=== PATIENT | male | born 1975 | race Caucasian/White ===

== ENCOUNTER → 2018-02-23 17:02 | Outpatient (CLI) | payer OTHER, SELFPAY ==
--- NOTE | 2018-02-23 17:06 | RAD_ITS ---
STUDY: X-RAY - LEFT FOOT CLINICAL: Male, 43 years old. Left foot burning TECHNIQUE: 2 view(s) of the foot. COMPARISON: None. FINDINGS: Dorsal and plantar calcaneus spurs. Normal visualized subtalar, talonavicular, calcaneocuboid, tarsal and tarsometatarsal articulations. Normal metatarsi. Normal metatarsophalangeal joint of the great toe. Normal tibial and fibular sesamoid bones. Normal interphalangeal joint of the great toe. Normal phalanges of the great toe. Normal second through fifth metatarsophalangeal joints. Normal interphalangeal joints and phalanges of the lesser toes. The soft tissue structures are unremarkable. RAD/Foot 2 Views IMPRESSION: Calcaneus spurs. No other osseous abnormality is evident. Electronically Signed: Rian Brock MD at 3:59 EDT Tel , Service support ,
== END ==
PROVIDERS: Family Provider Internal Medicine; PCP Internal Medicine; Referring Provider Internal Medicine; Visit Provider Internal Medicine
DX: M77.32 Calcaneal spur, left foot (principal)
CPT/HCPCS: 73620

== ENCOUNTER → 2018-05-04 14:38 | Outpatient (CLI) | payer OTHER, SELFPAY | PROVIDERS: Family Provider Internal Medicine; PCP Internal Medicine; Visit Provider Internal Medicine | DX: G47.30 Sleep apnea, unspecified (principal) | CPT/HCPCS: 98960; G0463 ==

== ENCOUNTER → 2018-07-26 08:00 | Outpatient (CLI) | payer OTHER, BC, SELFPAY ==
[2018-07-25 16:14] VITALS: BMI 49.4
[2018-07-26 08:31] LABS: Bacteria 0 SEEN /hpf (None Seen); Mucous, Urine 0 SEEN /hpf (<or=2+); Red Blood Cells-Urine 0 SEEN /hpf (0-5); Squamous Epithelial Cells - UA 0 SEEN /hpf (0-5); White Blood Cells 0 SEEN /hpf (0-5)
[2018-07-26 13:36] LABS: Color, Urine Yellow (Yellow); Glucose, Dipstick Normal (Normal); Ketone-Dipstick Negative (Negative); Leukocyte Esterase-Dipstick Negative /ul (Negative); Nitrite-Dipstick Negative (Negative); Occult Blood-Urine 10 /ul (Negative); Protein-Dipstick 15 mg/dl (Negative); Urine Bilirubin Dipstick Negative (Negative); Urine Clarity Clear (Clear); Urine Urobilinogen Normal (Normal)
== END ==
PROVIDERS: Family Provider Internal Medicine; PCP Internal Medicine; Visit Provider Nurse Practitioner Family
DX: R30.0 Dysuria (principal)
CPT/HCPCS: 81001; 87086

== ENCOUNTER → 2018-08-01 | Outpatient (CLI) | payer OTHER, BC, SELFPAY ==
[2018-07-25 16:14] VITALS: BMI 49.4
[2018-08-01 16:56] LABS: Chlamydia Trachomatis by PCR Negative (Negative); Neisserai gonorrhoeae by PCR Negative (Negative); Probe Check PASS; Sample Adequacy Control PASS; Specimen Processing Control PASS; Trichomonas Vag DNA by PCR Negative (Negative)
== END | disposition home or self-care (01) ==
PROVIDERS: Family Provider Internal Medicine; PCP Internal Medicine; Referring Provider Nurse Practitioner Family; Visit Provider Nurse Practitioner Family
DX: R30.0 Dysuria (principal)
CPT/HCPCS: 87210; 87491; 87591; 87661

== ENCOUNTER → 2019-09-28 15:38 | Outpatient (CLI) | payer BC, SELFPAY ==
[2019-09-28 15:26] VITALS: BMI 49.4
[2019-09-28 16:48] LABS: Absolute Lymphocyte Count 1.51 X10^3/uL (0.83-4.51); Basophil# 0.02 X10^3/uL; Basophil% 0.3 % (0-1); Eosinophil# 0.16 X10^3/uL; Eosinophils% 2.2 % (0-5); Hematocrit 44.7 % (40-54); Hemoglobin 14.8 g/dL (13.0-16.5); Lymphocyte # 1.51 X10^3/ul (4.0); Lymphocyte % 20.8 % (19-41); Mean Corp Hgb Conc 33.1 g/dL (32-36); Mean Corpuscular Hgb 29.2 pg (27.0-32.0); Mean Corpuscular Volume 88.3 fL (80-94); Mean Platelet Vol. 10.7 fl (6.2-12.0); Monocyte# 0.53 X10^3/uL; Monocyte% 7.3 % (0-10); NRBC Flagged by Analyzer 0 % (0-5); Neutrophil # 5.02 X10^3/uL (2.7-7.7); Neutrophil % 69.1 % (47-70); Platelet Count 211 K/mm3 (150-450); RBC Distribution Width CV 12.1 % (11.6-14.6); RBC Distribution Width SD 38.9 fl (35.1-43.9); Red Blood Count 5.06 M/mm3 (4.6-6.2); White Blood Count 7.3 K/mm3 (4.4-11.0)
[2019-09-28 17:19] LABS: Hemoglobin A1c 5.5 % (3.8-5.6)
[2019-09-28 17:22] LABS: ALB/GLOB Ratio 1.2 RATIO (0.9-2.4); AST(SGOT) 21 U/L (15-37); Alanine Aminotransfer ALT/SGPT 36 U/L (16-61); Alkaline Phosphatase 95 U/L (45-117); Anion Gap 6 (5-15); BUN 21 mg/dL (7-18); BUN/Creat Ratio 21.2 RATIO (10-20); Calcium,Total 9.2 mg/dL (8.5-10.1); Chloride 107 mmol/L (98-107); Cholesterol 207 mg/dL (200); Creatinine, Serum 0.99 mg/dL (0.70-1.30); EST Glomerular Filtration Rate 87 mL/min (>60); Est Glom Filt Rate - Afr Amer 106 mL/min (>60); Globulin 3.3 g/dL (2.2-4.2); Glucose 117 mg/dL (74-106); High Density Lipoprotein 38 mg/dL; Potassium 3.9 mmol/L (3.5-5.1); Protein, Total 7.3 g/dL (6.4-8.2); Sodium Level 140 mmol/L (136-145); Thyroid Stim Hormone (TSH) 1.39 uIU/mL (0.358-3.74); Triglycerides 437 mg/dL
--- OUTSIDE RECORDS SUMMARY | 2020-02-10 08:43 | XMS RPT_ITS | CCD ---
:1975 External Reference #:[id number] Author Organization [facility] Care Team Providers Name Role Phone RASHIDA, [facility] Unavailable Unavailable R[facility]IDA, [facility] Unavailable Unavailable R[facility]IDA, [facility] Unavailable Unavailable RASHIDA, [facility] Unavailable Unavailable RASHIDA, [facility] Unavailable Unavailable RASHIDA, [facility] Unavailable Unavailable Melecio Ahumada () Primary Care Provider Medications Medication Name Sig Date Prescriber Location Cetirizine CETIRIZINE HCL (ZYRTEC Ccf Provider [facility] ORAL) Take by mouth Provider ([id number]) once daily. 0 Active Comment: Take by mouth once daily. CPAP CPAP daily at bedtime. 0 Ccf Provider Ccf Provider [facility] (85114) Active Comment: daily at bedtime. Gemfibrozil gemfibrozil (LOPID) 09-30-2016 Jude Sanford) [facility] 600 mg tablet Take 1 Brandyn Majano (26305) tablet by mouth twice () Brandyn daily before meals. 180 tablet 1 09/30/2016 Active Comment: Take 1 tablet by mouth twice daily before meals. hydroCHLOROthiazide Hydrochlorothiazide 12.5 08-30-2016 Vin Jeff mg capsule Take 1 () Brandyn Luz (44 195) capsule by mouth once Jude Majano daily. 90 capsule 3 (Savi Ahumada 08/30/2016 Active Comment: Take 1 capsule by mouth once daily. Metoprolol metoprolol tartrate, 03-31-2017 Jude Sanford) [facility] short acting, Brandyn Majano (4419 5) (LOPRESSOR) 50 mg () Brandyn tablet TAKE 1 TABLET BY MOUTH TWICE DAILY. 180 tablet 0 03/31/2017 Active Comment: TAKE 1 TABLET BY MOUTH TWICE DAILY. MULTIVITAMIN ORAL MULTIVITAMIN ORAL Take 1 Ccf Provide r Ccf [facility] tablet by mouth once Provider (39353) daily. 0 Active Comment: Take 1 tablet by mouth once daily. Problems Category Problem Name Status Date Location Disorders of lipid Hyperlipidemia Active [facility] metabolism (15145) Essential hypertension Hypertensive disorder Active [facility] (05602) Other nutritional; Morbid obesity Active 07-25-2017 - [facility] endocrine; and (61473) metabolic disorders Results Result Name Value Range Unit Interpretation Flag Date Location No panel information on 2019-12-17 [facility] ([id number]) progress on 2019-04 PROGRESS HNO ID: [id number] Normal 04-27-2019 [facility] Author: Myah Hernandez ([id number]) Service: ? Author Type: Automatic Presser Type: Progress Notes Filed: 04/27/2019 9:29 AM Note Text: POPULATION HEALTH IMPLEMENTATION SPECIALIST QUICKNOTE Provider Action/FYI: Letter mailed to patient. Patient identified by name and . Myah Hernandez CMA PROGRESS HNO ID: [id number] Normal 04-27-2019 [facility] Author: Myah Hernandez ([id number]) Service: ? Author Type: Automatic Presser Type: Progress Notes Filed: 04/27/2019 9:29 AM Note Text: POPULATION [facility] IMPLEMENTATION SPECIALIST QUICKNOTE Provider Action/FYI: 3rd attempt - Left detailed message for patient to return ca ll #[phone] Mailing letter to patient. Patient identified by name and . Myah Hernandez CMA progress on 2019-03 PROGRESS HNO ID: [id number] Normal 04-24-2019 [facility] Author: Myah Hernandez ([id number]) Service: ? Author Type: Automatic Presser Type: Progress Notes Filed: 04/27/2019 9:29 AM Note Text: POPULATION HEALTH IMPLEMENTATION SPECIALIST QUICKNOTE Provider Action/FYI: 2nd attempt - Left detailed message for patient to return ca ll #[phone] Patient identified by name and . Myah Hernandez CMA progress on 2019-03 PROGRESS HNO ID: [id number] Normal 04-20-2019 [facility] Author: Myah Hernandez ([id number]) Service: ? Author Type: Automatic Presser Type: Progress Notes Filed: 04/27/2019 9:29 AM Note Text: POPULATION HEALTH IMPLEMENTATION SPECIALIST QUICKNOTE Provider Action/FYI: 1st attempt - Left detailed message for patient to return ca #[phone] Patient identified by name and . Myah Hernandez CMA progress on 2019-03 PROGRESS HNO ID: [id number] Normal 04-19-2019 [facility] Author: Myah Jeff ([id number]) Service: ? Author Type: Automatic Presser Type: Progress Notes Filed: 04/27/2019 9:29 AM Note Text: [facility] CARE GAP REGISTRY DOCUMENTATION (OUTSIDE TEAMLET) Provider Action/FYI: PSR Action/FYI: - due for Physical next available with PCP or LAWN TECHNICIAN (last pcp a ppointment 07/27/16) With labs prior (already ordered) Health Maintenance Due: BP CONTROLLED (<130/80) due on 01/04/1994 ANNUAL PCP TEAM CHRONIC DISEASE VISIT due on 07/27/2017 INFLUENZA(1) due on 12/24/2018 Patient identified by name and date of . Last BP/Labs: Blood Pressure: Last 3 Encounter BP Readings: Date: BP: 07/27/2016 122/78 Lipids: Cholesterol, Total (mg/dL) Date Value 08/07/2016 156 HDL Cholesterol (mg/dL) Date Value 08/07/2016 34 LDL Cholesterol (mg/dL) Date Value 08/07/2016 89 Triglyceride (mg/dL) Date Value 08/07/2016 167 HGB A1C: Lab Results Component Value Date HBA1C 5.8 08/07/2016 TSH: No results found for: TSH) ? Patient has the following care gap registry disease diagnosis:Hyperlipidemia ? HTN ? Patient has the following open care gaps: Health Maintenance Due: BP CONTROLLED (<130/80) due on 01/04/1994 ANNUAL PCP TEAM CHRONIC DISEASE VISIT due on 07/27/2017 INFLUENZA(1) due on 12/24/2018 ? Last office visit: 07/27/2016 ? Future office visit: Physical next available with pcp or n p Myah Hernandez CMA cnptoutreach on 201 01-04-26 CNPTOUTREACH Patient Outreach (FAMPWS) Normal 1 06-20-2018 [facility] LORANICHOLAS Shakila ([id number]) 1975 [facility] Date Time Provider Department (76504) 04/19/19 MYAH HERNANDEZ) JOELLE During your visit today, we recorded the following informati on about you: Myah Hernandez CMA 04/27/2019 9:29 AM Signed [facility] CARE GAP REGISTRY DOCUMENTATION (OUTSIDE TEAMLET) Provider Action/FYI: PSR Action/FYI: - due for Physical next available with P CP or LAWN TECHNICIAN (last pcp appointment 07/27/16) With labs prior (already ordered) Health Maintenance Due: BP CONTROLLED (<130/80) due on 01/04/1994 ANNUAL PCP TEAM CHRONIC DISEASE VISIT due on 07/27/2017 INFLUENZA(1) due on 12/24/2018 Patient identified by name and date of . Last BP/Labs: Blood Pressure: Last 3 Encounter BP Readings: Date: BP: 07/27/2016 122/78 Lipids: Cholesterol, Total (mg/dL) Date Value 08/07/2016 156 HDL Cholesterol (mg/dL) Date Value 08/07/2016 34 LDL Cholesterol (mg/dL) Date Value 08/07/2016 89 Triglyceride (mg/dL) Date Value 08/07/2016 167 HGB A1C: Lab Results Component Value Date HBA1C 5.8 08/07/2016 TSH: No results found for: TSH) ? Patient has the following care gap reg istry disease diagnosis:Hyperlipidemia ? HTN ? Patient has the following open care gaps: Health Maintenance Due: BP CONTROLLED (<130/80) due on 01/04/1994 ANNUAL PCP TEAM CHRONIC DISEASE VISIT due on 07/27/2017 INFLUENZA(1) due on 12/24/2018 ? Last office visit: 07/27/2016 ? Future office visit: Physical next available with pcp or n p GERMÁN Rooney CMA 04/27/2019 9:29 AM Signed POPULATION HEALTH IMPLEMENTATION SPECIALIST PINKY Provider Action/FYI: 1st attempt - Left detailed message for patient to return ca ll #[phone] Patient identified by name and . GERMÁN Rooney CMA 04/27/2019 9:29 AM Signed POPULATION HEALTH IMPLEMENTATION SPECIALIST PINKY Provider Action/FYI: 2nd attempt - Left detailed message for patient to return ca ll #[phone] Patient identified by name and . Myah GERMÁN Hernandez CMA 04/27/2019 9:29 AM Signed [facility] IMPLEMENTATION SPECIALIST YULIAE Provider Action/FYI: 3rd attempt - Left detailed message for patient to return ca ll #[phone] Mailing letter to patient. Patient identified by name and . Myah GERMÁN Hernandez CMA 04/27/2019 9:29 AM Signed [facility] IMPLEMENTATION SPECIALIST YULIAE Provider Action/FYI: Letter mailed to patient. Patient identified by name and . Myah Hernandez CMA Allergies As of Date: 04/19/2019 (No Known Allergies) Date Reviewed: 07/27/2016 Reviewed by: Jude Sanford) Brandyn - Fully Assessed Reason for Visit: PHMA/Care Gap Outreach [[id number]] Prescriptions as of 04/19/2019 Sig: METOPROLOL TARTRATE 50 MG TAB* TAKE 1 TABLET BY MOUTH TWICE * GEMFIBROZIL 600 MG TABLET Take 1 tablet by mouth twice * HYDROCHLOROTHIAZIDE 12.5 MG C* Take 1 capsule by mouth once * MULTIVITAMIN ORAL Take 1 tablet by mouth once d* ZYRTEC ORAL Take by mouth once daily. CPAP daily at bedtime. Problem List As Of Date 04/19/2019 Noted Resolved Hypertension [I10] Hyperlipidemia [E78.5] Obesity, Class III, BMI 40-49.9 (morbid obesity*07/25/2017 Letter Text Encounter Status:Closed by MYAH HERNANDEZ CMA on 04/27/19 progress on 2018-11 PROGRESS HNO ID: [id number] Normal 12-01-2018 [facility] Author: Myah Hernandez ([id number]) Service: ? Author Type: Automatic Presser Type: Progress Notes Filed: 12/01/2018 8:42 AM Note Text: [facility] IMPLEMENTATION SPECIALIST YULIAE Provider Action/FYI: 3rd attempt - Left message for patient to return call #[phone] Mailing letter to patient. Patient identified by name and . Myah Hernandez CMA progress on 2018-11 PROGRESS HNO ID: [id number] Normal 11-29-2018 [facility] Author: Myah Hernandez ([id number]) Service: ? Author Type: Automatic Presser Type: Progress Notes Filed: 12/01/2018 8:42 AM Note Text: POPULATION HEALTH IMPLEMENTATION SPECIALIST QUICKNOTE Provider Action/FYI: 2nd attempt - Left detailed message for patient to return ca ll #[phone] Patient identified by name and . Myah Hernandez CMA progress on 2018-11 PROGRESS HNO ID: [id number] Normal 11-24-2018 [facility] Author: Myah MisRuslan Hernandez ([id number]) Service: ? Author Type: Automatic Presser Type: Progress Notes Filed: 12/01/2018 8:42 AM Note Text: POPULATION [facility] IMPLEMENTATION SPECIALIST QUICKNOTE Provider Action/FYI: 1st attempt - Left detailed message for patient to return ca ll #[phone] Patient identified by name and . Myah Hernandez CMA progress on 2018-10 PROGRESS HNO ID: [id number] Normal 11-22-2018 [facility] Author: Myah Hernandez [place] ([id number]) Service: ? Author Type: Automatic Presser Type: Progress Notes Filed: 12/01/2018 8:42 AM Note Text: [facility] CARE GAP REGISTRY DOCUMENTATION (OUTSIDE TEAMLET) Provider Action/FYI: PSR Action/FYI: - due for Physical (last PCP appointment 07/27/2016) with labs prior (already ordered) Health Maintenance Due: BP CONTROLLED (<130/80) due on 01/04/1994 ANNUAL PCP TEAM CHRONIC DISEASE VISIT due on 07/27/2017 Patient identified by name and date of . Last BP/Labs: Blood Pressure: Last 3 Encounter BP Readings: Date: BP: 07/27/2016 122/78 Lipids: Cholesterol, Total (mg/dL) Date Value 08/07/2016 156 HDL Cholesterol (mg/dL) Date Value 08/07/2016 34 LDL Cholesterol (mg/dL) Date Value 08/07/2016 89 Triglyceride (mg/dL) Date Value 08/07/2016 167 HGB A1C: Lab Results Component Value Date HBA1C 5.8 08/07/2016 TSH: No results found for: TSH) ? Patient has the following care gap registry disease diagnosis:Hyperlipidemia ? HTN ? Patient has the following open care gaps: Health Maintenance Due: BP CONTROLLED (<130/80) due on 01/04/1994 ANNUAL PCP TEAM CHRONIC DISEASE VISIT due on 07/27/2017 ? Last office visit: 07/27/2016 ? Future office visit: Physical Myah Hernandez CMA cnptoutreach on 201 12-30-30 CNPTOUTREACH Patient Outreach ([facility]WS) Normal 0 11-22-2018 [place] [facility] NICHOLAS LORA ([id number]) 1975 [facility] Date Time Provider Department (37902) 11/22/18 MYAH HERNANDEZ) FAMPWS During your visit today, we recorded the following informati on about you: Myah Hernandez CMA 12/01/2018 8:42 AM Signed [facility] CARE GAP REGISTRY DOCUMENTATION (OUTSIDE TEAMLET) Provider Action/FYI: PSR Action/FYI: - due for Physical (last PCP appointment 07/27/2016) with kris rodrigez prior (already ordered) Health Maintenance Due: BP CONTROLLED (<130/80) due on 01/04/1994 ANNUAL PCP TEAM CHRONIC DISEASE VISIT due on 07/27/2017 Patient identified by name and date of . Last BP/Labs: Blood Pressure: Last 3 Encounter BP Readings: Date: BP: 07/27/2016 122/78 Lipids: Cholesterol, Total (mg/dL) Date Value 08/07/2016 156 HDL Cholesterol (mg/dL) Date Value 08/07/2016 34 LDL Cholesterol (mg/dL) Date Value 08/07/2016 89 Triglyceride (mg/dL) Date Value 08/07/2016 167 HGB A1C: Lab Results Component Value Date HBA1C 5.8 08/07/2016 TSH: No results found for: TSH) ? Patient has the following care gap reg istry disease diagnosis:Hyperlipidemia ? HTN ? Patient has the following open care gaps: Health Maintenance Due: BP CONTROLLED (<130/80) due on 01/04/1994 ANNUAL PCP TEAM CHRONIC DISEASE VISIT due on 07/27/2017 ? Last office visit: 07/27/2016 ? Future office visit: Physical GERMÁN Rooney CMA 12/01/2018 8:42 AM Signed POPULATION HEALTH IMPLEMENTATION SPECIALIST MARCELINONOTE Provider Action/FYI: 1st attempt - Left detailed message for patient to return ca ll #[phone] Patient identified by name and . GEMRÁN Rooney CMA 12/01/2018 8:42 AM Signed [facility] IMPLEMENTATION SPECIALIST PINKY Provider Action/FYI: 2nd attempt - Left detailed message for patient to return ca ll #[phone] Patient identified by name and . GERMÁN Rooney CMA 12/01/2018 8:42 AM Signed [facility] IMPLEMENTATION SPECIALIST PINKY Provider Action/FYI: 3rd attempt - Left message for patient to return call #[phone] Mailing letter to patient. Patient identified by name and . Myah Hernandez CMA Allergies As of Date: 11/22/2018 (No Known Allergies) Date Reviewed: 07/27/2016 Reviewed by: Jude Sanford) Brandyn - Fully Assessed Reason for Visit: PHMA/Care Gap Outreach [1234] Prescriptions as of 11/22/2018 Sig: METOPROLOL TARTRATE 50 MG TAB* TAKE 1 TABLET BY MOUTH TWICE * GEMFIBROZIL 600 MG TABLET Take 1 tablet by mouth twice * HYDROCHLOROTHIAZIDE 12.5 MG C* Take 1 capsule by mouth once * MULTIVITAMIN ORAL Take 1 tablet by mouth once d* ZYRTEC ORAL Take by mouth once daily. CPAP daily at bedtime. Problem List As Of Date 11/22/2018 Noted Resolved Hypertension [I10] Hyperlipidemia [E78.5] Obesity, Class III, BMI 40-49.9 (morbid obesity*INVALID FOR* Letter Text Encounter Status:Closed by CHANDRIKA MYAH DUNLAP on 12/01/18 progress on 2018-07 PROGRESS HNO ID: [id number] Normal 07-26-2018 [facility] Author: Tg Lowery) Shelton Jeff ([id number]) Service: ? Author Type: Automatic Presser Type: Progress Notes Filed: 08/01/2018 3:20 PM Note Text: [facility] IMPLEMENTATION SPECIALIST PINKY Provider Action/FYI: I have attempted to contact this patient by phone to return their call, schedule an appointment, discuss lab results, etc. Left mess age to call back. Patient identified by name and . Tg Peoples MA progress on 2018-07 PROGRESS HNO ID: [id number] Normal 07-25-2018 [facility] Author: Tg Peoples [place] ([id number]) Service: ? Author Type: Automatic Presser Type: Progress Notes Filed: 08/01/2018 3:20 PM Note Text: POPULATION HEALTH IMPLEMENTATION SPECIALIST QUICKNOTE Provider Action/FYI: I have attempted to contact this patient by phone to return their call, schedule an appointment, discuss lab results, etc. Left mess age to call back. Patient identified by name and . Tg Peoples MA PROGRESS HNO ID: [id number] Normal 07-25-2018 [facility] Author: Tg Peoples [place] ([id number]) Service: ? Author Type: Automatic Presser Type: Progress Notes Filed: 08/01/2018 3:20 PM Note Text: PHMA TEAMLET DOCUMENTATION Provider Action/FYI: Patient needs appointment, labs ordered, PSR Ac tion/FYI: Teamlet has identified patient by name and date of . Team ,Dr. Ahumada, Tg Peoples MA, Annia Manninglogtone,LAWN TECHNICIAN ? Last Office Visit:Visit date not found ? Next Office Visit: Visit date not found ? Last BP/Labs: Blood Pressure: Last 3 Encounter BP Readings: Date: BP: 07/27/2016 122/78 Lipids: Cholesterol, Total (mg/dL) Date Value 08/07/2016 156 HDL Cholesterol (mg/dL) Date Value 08/07/2016 34 LDL Cholesterol (mg/dL) Date Value 08/07/2016 89 Triglyceride (mg/dL) Date Value 08/07/2016 167 HGB A1C: Lab Results Component Value Date HBA1C 5.8 08/07/2016 TSH: No results found for: TSH) Care Gap: HTN - Yearly check up Plan: ? Confirm PCP / Status unknown ? Type of appointment needed: Follow-up ? Consultation Appointments: No patient outreach needed at t his time ? Labs, HM and Immunization: Labs: CBC (Diff or PLT) CMP Lipids Tg Peoples MA cnptoutreach on 201 12-27-01 CNPTOUTREACH Patient Outreach (FAMPWS) Normal 0 07-25-2018 [place] [facility] LORANICHOLAS ([id number]) 1975 [facility] Date Time Provider Department (82365) 07/25/18 TG PEOPLES) CECILEPWS During your visit today, we recorded the following informati on about you: Tg Peoples MA 08/01/2018 3:20 PM Signed [facility]MA TEAMLET DOCUMENTATION Provider Action/FYI: Patient needs appointment, labs ordered, PSR Ac tion/FYI: Teamlet has identified patient by name and date of . Team ,Dr. Ahumada, Tg Peoples MA, Annia Barroso NP ? Last Office Visit:Visit date not found ? Next Office Visit: Visit date not found ? Last BP/Labs: Blood Pressure: Last 3 Encounter BP Readings: Date: BP: 07/27/2016 122/78 Lipids: Cholesterol, Total (mg/dL) Date Value 08/07/2016 156 HDL Cholesterol (mg/dL) Date Value 08/07/2016 34 LDL Cholesterol (mg/dL) Date Value 08/07/2016 89 Triglyceride (mg/dL) Date Value 08/07/2016 167 HGB A1C: Lab Results Component Value Date HBA1C 5.8 08/07/2016 TSH: No results found for: TSH) Care Gap: HTN - Yearly check up Plan: ? Confirm PCP / Status unknown ? Type of appointment needed: Follow-up ? Consultation Appointments: No patient outreach needed at t his time ? Labs, HM and Immunization: Labs: CBC (Diff or PLT) CMP Lipids YOLANDA Garcia MA 08/01/2018 3:20 PM Signed [facility] IMPLEMENTATION SPECIALIST PINKY Provider Action/FYI: I have attempted to contact this patient by phone to return their call, schedule an appointment, discuss lab results, et c. Left message to call back. Patient identified by name and . YOLANDA Garcia MA 08/01/2018 3:20 PM Signed [facility] IMPLEMENTATION SPECIALIST PINKY Provider Action/FYI: I have attempted to contact this patient by phone to return their call, schedule an appointment, discuss lab results, et c. Left message to call back. Patient identified by name and . Tg Peoples MA Allergies As of Date: 07/25/2018 (No Known Allergies) Date Reviewed: 07/27/2016 Reviewed by: Jude Sanford) Brandyn - Fully Assessed Reason for Visit: PHMA/Care Gap Outreach [3605] Primary Visit Diagnosis:Hype rlipidemia, unspecified hyperlipidemia type [E78.5] Other Visit Diagnosis:Essential hypertension [I10] Order(s):COMP METABOLIC PANEL [SQCMP] Order #: [id number] FU TURE LIPID PANEL BASIC [SQLIPB] Order #: [id number] FUTURE CBC + DIFF [SQCBCDIF] Order #: [id number] FUTURE Prescriptions as of 07/25/2018 Sig: METOPROLOL TARTRATE 50 MG TAB* TAKE 1 TABLET BY MOUTH TWICE * GEMFIBROZIL 600 MG TABLET Take 1 tablet by mouth twice * HYDROCHLOROTHIAZIDE 12.5 MG C* Take 1 capsule by mouth once * MULTIVITAMIN ORAL Take 1 tablet by mouth once d* ZYRTEC ORAL Take by mouth once daily. CPAP daily at bedtime. Problem List As Of Date 07/25/2018 Noted Resolved Hypertension [I10] Hyperlipidemia [E78.5] Obesity, Class III, BMI 40-49.9 (morbid obesity*INVALID FOR* Encounter Status:Closed by TG PEOPLES on 08/01/18 Encounters Date Type Reason Provider Location 02-17-2017 - [facility] je 02-17-2017 [facility] ([id number]) [facility] 02-11-2017 - [facility] je 02-11-2017 [facility] ([id number]) [facility] 12-17-2019 - [facility] 12-17-2019 visit by physician Comment: I10 R07.9 Procedures Procedure Name Date Provider Location Electrocardiogram 12-17-2019 [facility] ([id number]) Ecg routine ecg w/least 12 lds 12-17-2019 Provider [facility] (85276) w/i&r Plan of Treatment Plan Description Date Location DTAP,TDAP,TD (2 - Td) DTAP,TDAP,TD (2 - Td) 07-27-2026 [facility] ([id number]) LIPID SCREEN LIPID SCREEN 08-07-2021 [facility] ([id number]) INFLUENZA (#1) INFLUENZA (#1) 2019 [facility] (13259) ANNUAL PCP TEAM CHRONIC ANNUAL PCP TEAM CHRONIC 07-27-2017 [facility] DISEASE VISIT DISEASE VISIT (98732) BP CONTROLLED (<130/80) BP CONTROLLED (<130/80) 01-04-1994 [facility] ([id number]) HEPATITIS C SCREENING HEPATITIS C SCREENING 01-04-1994 [facility] (05510) HIV SCREENING HIV SCREENING 01-04-1994 [facility] (19959) Immunizations Vaccine Notes Status Date Location Tdap (Age 7+) tetanus toxoid, reduced (completed) 07-27-2016 [facility] diphtheria toxoid, and (4419 5) acellular pertussis vaccine, adsorbed Payers Payer Name Policy Number Location KERRY [id number] [facility] (44 824) The following information is from the original human readable contentNo Payer Records FoundNo Payer Records FoundNo Payer Records FoundNo Payer Records FoundNo Payer Records Found Social History Type Social History Date Location Description Tobacco smoking status Former smoker 08-09-2016 [facility] (25929) History of tobacco use Current smoker 07-27-2008 [facility] (54087) History of tobacco use Cigarette Smoker 07-27-2008 [facility] (62586) Cigarettes smoked 08-09-2016 - [facility] ic current (pack per day) 08-09-2016 (99145) - Reported Tobacco use and Former user 08-09-2016 [facility] exposure (32356) History of tobacco use Chews Tobacco 07-28-2015 [facility] (14416) Alcohol intake Current non-drinker of 08-09-2016 [facility] alcohol (finding) (00965) Sex Assigned At Not on file [facility] (11346) The following information is from the original human readable contentNo Social History Records FoundNo Social History Records FoundNo Social History Records FoundNo Social History Records FoundNo Social History Records Found Summary Purpose Family History No Family History Records FoundNo Family History Records FoundNo Family History Records Found Advance Directives No Advanced Directives Records FoundNo Advanced Directives Records FoundNo Advanced Directives Records Found Additional Source Comments FOR RECORDS PERTAINING TO PATIENTS WHO ARE OR HAVE BEEN ENROLLED IN A CHEMICAL DEPENDENCY/SUBSTANCE ABUSE PROGRAM, SOME INFORMATION MAY BE OMITTED. This clinical summary was aggregated from multiple sources. Caution should be exercised in using it in the provision of clinical care. This summary normalizes information from multiple sources, and as a consequence, information in this document may materially changethe coding, format and clinical context of patient data. In addition, data may be omittedin some cases. CLINICAL DECISIONS SHOULD BE BASED ON THE PRIMARY CLINICAL RECORDS. [facility] provides no warranty or guarantee of the accuracy or completeness of information in this document. UNRECOGNIZED CONTENT PROVIDED BELOW FOR UNRECOGNIZED SECTION No Status Records FoundNo Status Records FoundNo Status Records Found UNRECOGNIZED CONTENT PROVIDED BELOW FOR UNRECOGNIZED SECTION INFORMATION SOURCE DATE CREATED AUTHOR AUTHOR'S ORGANIZATIO N 10/18/2017 [facility] DATE CREATED AUTHOR AUTHOR'S ORGANIZATIO N 04/27/2019 [facility] DATE CREATED AUTHOR AUTHOR'S ORGANIZATIO N 12/24/2019 [facility] UNRECOGNIZED CONTENT PROVIDED BELOW FOR UNRECOGNIZED SECTION Source Comments In the event this information is protected by the Federal Confidentiality of Alcohol and Drug Abuse Patient Records regulations: The Federal rules restrict any use of the information to criminally investigate or prosecute any alcohol or drug abuse patient.[facility]
== END ==
PROVIDERS: Nurse Practitioner Family; PCP Internal Medicine; Referring Provider Internal Medicine; Visit Provider Internal Medicine
DX: E78.5 Hyperlipidemia, unspecified (principal); I10 Essential (primary) hypertension; E66.01 Morbid (severe) obesity due to excess calories
CPT/HCPCS: 36415; 80053; 80061; 83036; 84443; 85025

== ENCOUNTER → 2019-11-13 15:44 | Outpatient (CLI) | payer OTHER, SELFPAY ==
[2019-11-13 15:24] VITALS: BMI 49.4
[2019-11-13 17:12] LABS: ALB/GLOB Ratio 1.2 RATIO (0.9-2.4); AST(SGOT) 25 U/L (15-37); Alanine Aminotransfer ALT/SGPT 43 U/L (16-61); Albumin, Serum 4.3 g/dL (3.2-5.0); Alkaline Phosphatase 98 U/L (45-117); Anion Gap 6 (5-15); BUN 18 mg/dL (7-18); BUN/Creat Ratio 17.5 RATIO (10-20); Calcium,Total 9.5 mg/dL (8.5-10.1); Chloride 103 mmol/L (98-107); Cholesterol 141 mg/dL (200); Creatinine, Serum 1.03 mg/dL (0.70-1.30); EST Glomerular Filtration Rate 83 mL/min (>60); Est Glom Filt Rate - Afr Amer 101 mL/min (>60); Globulin 3.5 g/dL (2.2-4.2); Glucose 84 mg/dL (74-106); High Density Lipoprotein 42 mg/dL; Potassium 3.7 mmol/L (3.5-5.1); Protein, Total 7.8 g/dL (6.4-8.2); Sodium Level 138 mmol/L (136-145); Triglycerides 207 mg/dL; Very Low Density Lipoprotein 41 mg/dL (5-40)
== END ==
PROVIDERS: PCP Internal Medicine; Referring Provider Nurse Practitioner Family; Visit Provider Nurse Practitioner Family
DX: E78.5 Hyperlipidemia, unspecified (principal)
CPT/HCPCS: 36415; 80053; 80061

== ENCOUNTER → 2021-01-27 15:45 | Outpatient (CLI) | payer BC, SELFPAY ==
[2021-01-27 16:31] LABS: Absolute Lymphocyte Count 1.55 X10^3/uL (0.83-4.51); Absolute Neutrophil Count 4.9 X10^3/uL (2.0-7.7); Basophil# 0.03 X10^3/uL; Basophil% 0.4 % (0-1); Eosinophil# 0.16 X10^3/uL; Eosinophils% 2.2 % (0-5); Hematocrit 46.2 % (40-54); Hemoglobin 15.6 g/dL (13.0-16.5); Lymphocyte # 1.55 X10^3/ul (0.83-4.51); Lymphocyte % 21.4 % (19-41); Mean Corp Hgb Conc 33.8 g/dL (32-36); Mean Corpuscular Hgb 29.4 pg (27.0-32.0); Mean Corpuscular Volume 87.2 fL (80-94); Mean Platelet Vol. 10.6 fl (6.2-12.0); Monocyte# 0.56 X10^3/uL; Monocyte% 7.7 % (0-10); NRBC Flagged by Analyzer 0 % (0-5); Neutrophil # 4.91 X10^3/uL (2.7-7.7); Platelet Count 215 K/mm3 (150-450); RBC Distribution Width CV 12.3 % (11.6-14.6); RBC Distribution Width SD 39.3 fl (35.1-43.9); White Blood Count 7.2 K/mm3 (4.4-11.0)
[2021-01-27 16:55] LABS: ALB/GLOB Ratio 1.1 RATIO (0.9-2.4); AST(SGOT) 37 U/L (15-37); Alanine Aminotransfer ALT/SGPT 80 U/L (16-61); Albumin, Serum 4.2 g/dL (3.2-5.0); Alkaline Phosphatase 95 U/L (45-117); Anion Gap 6 (5-15); BUN 18 mg/dL (7-18); BUN/Creat Ratio 15.7 RATIO (10-20); Calcium,Total 9.9 mg/dL (8.5-10.1); Chloride 104 mmol/L (98-107); Cholesterol 199 mg/dL (200); Creatinine, Serum 1.15 mg/dL (0.70-1.30); EST Glomerular Filtration Rate 73 mL/min (>60); Est Glom Filt Rate - Afr Amer 88 mL/min (>60); Globulin 3.8 g/dL (2.2-4.2); Glucose 93 mg/dL (74-106); High Density Lipoprotein 43 mg/dL; Potassium 4.3 mmol/L (3.5-5.1); Sodium Level 141 mmol/L (136-145); Thyroid Stim Hormone (TSH) 1.64 uIU/mL (0.358-3.74); Triglycerides 231 mg/dL; Very Low Density Lipoprotein 46 mg/dL (5-40)
== END ==
PROVIDERS: PCP Internal Medicine; Referring Provider Nurse Practitioner Family; Visit Provider Nurse Practitioner Family
DX: E78.5 Hyperlipidemia, unspecified (principal); G47.30 Sleep apnea, unspecified; I10 Essential (primary) hypertension
CPT/HCPCS: 36415; 80053; 80061; 84443; 85025